=== PATIENT | male | born 1955 | race Caucasian/White ===

== ENCOUNTER 2017-08-15 19:58 | Outpatient (CLI) | payer SELFPAY | END 2017-08-15 19:59 | disposition critical access hospital (66) | LOC: EMS 19:58 | PROVIDERS: ATTEND Surgery | DX: S01.511A Laceration without foreign body of lip, initial encounter (principal); Y04.2XXA Assault by strike against or bumped into by another person, initial encounter; Y92.414 Local residential or business street as the place of occurrence of the external cause | CPT/HCPCS: A0425; A0429 ==

== ENCOUNTER 2017-08-15 20:12 | Emergency (ER) | payer SELFPAY ==
--- NOTE | 2017-08-15 22:39 | CT Preliminary Report ---
Exam: CT HEAD W/O IMPRESSION: Generalized age-related cortical atrophic changes without evidence of acute intracranial abnormality. [facility] SITE ID: [id number]
--- NOTE | 2017-08-15 22:44 | CT Report ---
EXAM: CT HEAD EXAM DATE: 08/15/2017 10:08 PM. CLINICAL HISTORY: Altered mental status. COMPARISON: None. TECHNIQUE: Multiaxial CT images were obtained from the foramen magnum to the vertex. IV contrast: Non e. Reformats: Coronal. In accordance with CT protocol optimization, one or more of the following dose reduction techniques w ere utilized for this exam: automated exposure control, adjustment of mA and/or KV based on patient s ize, or use of iterative reconstructive technique. FINDINGS: Parenchyma: No intraparenchymal hemorrhage. No evidence of mass, midline shift, or CT findings of acu te infarction. Stanofrd-white differentiation is distinct. Extraaxial Spaces: Normal for age. No subdural or epidural collections identified. Ventricles: The ventricles and cortical sulci are moderately enlarged, consistent with age-related ti ssue loss. Sinuses and orbits: Imaged paranasal sinuses, orbits, and mastoids show no significant abnormality. Bones: No evidence of fracture or calvarial defect. IMPRESSION: Generalized age-related cortical atrophic changes without evidence of acute intracranial abnormality. [facility] Referring Provider Line: [phone] SITE ID: [id number]
--- NOTE | 2017-08-15 22:45 | CT Preliminary Report ---
Exam: CT CERVICAL SPINE W/O IMPRESSION: 1. No acute cervical spine fracture. 2. Moderate multilevel degenerative changes result in spinal canal stenosis with potential impingemen t of the spinal cord at C3-C4 and C4-C5. [facility] SITE ID: [id number]
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
--- NOTE | 2017-08-15 22:49 | CT Preliminary Report ---
Exam: CT FACIAL BONES W/O IMPRESSION: No acute facial bone fracture. [facility] SITE ID: [id number]
--- NOTE | 2017-08-15 22:56 | CT Report ---
EXAM: CT CERVICAL SPINE WITHOUT CONTRAST DATE: 08/15/2017 10:13 PM. HISTORY: Neck pain, altered mental status, fall. COMPARISONS: None. TECHNIQUE: Thin-section axial images were acquired of the cervical spine without contrast. Post-proce ssing: Coronal and sagittal reformats. Other: None. In accordance with CT protocol optimization, one or more of the following dose reduction techniques w ere utilized for this exam: automated exposure control, adjustment of mA and/or KV based on patient s ize, or use of iterative reconstructive technique. FINDINGS: Alignment: Degenerative grade 1 anterolisthesis is present at C3-C4 measuring 23 mm. There is no sco liosis. Bones: No acute cervical spine fracture is identified. Moderate anteriorly projecting osteophytes are present throughout the mid and lower cervical spine. Interspace Levels/Facets: C1-C2: Moderate degenerative changes are present anteriorly without craniocervical stenosis. C2-C3: A central protrusion results in mild spinal canal stenosis. Bilateral facet arthropathy is not ed without foraminal narrowing. C3-C4: A central protrusion results in spinal canal stenosis with possible impingement of the spinal cord. There is severe left and mild right foraminal narrowing due to uncovertebral hypertrophy and fa cet arthropathy. C4-C5: A central protrusion results in mild spinal canal stenosis with potential impingement of the s benny cord. There is moderate left and mild right foraminal narrowing due to uncovertebral hypertroph y and facet arthropathy. C5-C6: A posterior disk osteophyte complex results in mild spinal canal stenosis. There is moderate b ilateral foraminal narrowing due to uncovertebral hypertrophy. C6-C7: There is moderate left foraminal narrowing due to uncovertebral hypertrophy. The spinal canal and right foramen are patent. C7-T1: Unremarkable. Musculature: There is mild diffuse fatty atrophy of the posterior paraspinal muscles. Other: No acute abnormality is seen in the remaining soft tissues of the neck. The lung apices are cl ear. IMPRESSION: 1. No acute cervical spine fracture. 2. Moderate multilevel degenerative changes result in spinal canal stenosis with potential impingemen t of the spinal cord at C3-C4 and C4-C5. [facility] Referring Provider Line: [phone] SITE ID: [id number]
--- NOTE | 2017-08-15 22:57 | CT Report ---
EXAM: CT MAXILLOFACIAL WITHOUT CONTRAST EXAM DATE: 08/15/2017 10:11 PM. CLINICAL HISTORY: Head pain, altered metal status, fall. COMPARISONS: None. TECHNIQUE: Thin-section axial images were acquired of the face without contrast. Post-processing: Cor onal and sagittal reformats. Other: None. In accordance with CT protocol optimization, one or more of the following dose reduction techniques w ere utilized for this exam: automated exposure control, adjustment of mA and/or KV based on patient s ize, or use of iterative reconstructive technique. FINDINGS: Soft Tissue: No mass or fluid collection.The infratemporal fossa and parapharyngeal spaces are unrema rkable. Orbits: Symmetric and unremarkable. Bones: No acute facial bone fracture is identified. There are probable chronic bilateral nasal bone f ractures. The patient is nearly edentulous. Temporomandibular Joints: The temporomandibular joints are symmetric and normally located. Sinuses: Normal. No mucosal thickening or fluid levels. IMPRESSION: No acute facial bone fracture. [facility] Referring Provider Line: [phone] SITE ID: [id number]
--- NOTE | 2017-08-16 06:30 | ED Physician Documentation ---
ED Addendum - Addendum Addendum: 08/16/17 06:29 Recheck in AM and he is rousable, alert and able to ambulate without ataxia. Denies particular pains. Feels okay with leaving for home. Will discharge him to waiting room.
[2017-08-16 06:42] VITALS: BP 130/74
== END 2017-08-16 06:35 | disposition home or self-care (01) ==
LOC: EDBD → ED 20:12
DX: S09.90XA Unspecified injury of head, initial encounter (principal); Y04.2XXA Assault by strike against or bumped into by another person, initial encounter; Y92.89 Other specified places as the place of occurrence of the external cause; F10.129 Alcohol abuse with intoxication, unspecified; F17.200 Nicotine dependence, unspecified, uncomplicated
CPT/HCPCS: 70450; 70486; 72125; 99283